=== PATIENT | male | born 1985 | race Caucasian/White ===

== ENCOUNTER 2024-12-05 10:11 | Inpatient (IN) | payer MEDICAID ==
[2024-12-05] VITALS (7 sets, daily range): BP systolic 125–142; BP diastolic 71–85; PULSE 70–88; RESP 18; TEMP 97.7–98.1; O2SAT 95–98
[~2024-12-05] VITALS: Ht 185.4 cm; Wt 80.3 kg
[2024-12-05] MEDS ORDERED: MAG HYDROX/ALUMINUM HYD/SIMETH ES 30 ML SUSPENSION UDCUP PO PRN (13:30)
[2024-12-05] MEDS ORDERED: LOPERAMIDE HCL 2 MG CAPSULE PO PRN (13:30)
[2024-12-05] MEDS: ZOLPIDEM TARTRATE 10 MG TABLET PO PRN (22:44)
[2024-12-06] MEDS ORDERED: PNEUMOCOCCAL VACCINE POLYVALENT 0.5 ML SYRINGE [PPSV23] IM. ONE (01:00)
[2024-12-06 03:11] VITALS: BP 140/69; PULSE 60; RESP 18; TEMP 97.5; O2SAT 96
[2024-12-06 06:00] VITALS: BP 126/62
[2024-12-06] MEDS: MetFORMIN HCL 500 MG ER TABLET PO SCH (06:03)
[2024-12-06] MEDS ORDERED: NICOTINE 14 MG/24 HOUR PATCH TD PRN (06:30)
[2024-12-06] MEDS ORDERED: MAG HYDROX/ALUMINUM HYD/SIMETH ES 30 ML SUSPENSION UDCUP PO PRN (06:30)
[2024-12-06] MEDS ORDERED: ACETAMINOPHEN 325 MG TABLET PO PRN (06:30)
[2024-12-06] MEDS ORDERED: ALBUTEROL SULFATE HFA 90 MCG/PUFF 8 GM INHALER IH PRN (06:30)
[2024-12-06] MEDS ORDERED: DOCUSATE SODIUM 100 MG CAPSULE PO PRN (06:30)
[2024-12-06] MEDS ORDERED: MAGNESIUM HYDROXIDE SUSPENSION 30 ML UDCUP PO PRN (06:30)
[2024-12-06] MEDS ORDERED: PETROLATUM,WHITE 28 GM JELLY TP PRN (06:30)
[2024-12-06] MEDS ORDERED: GuaiFENesin/D-METHORPHAN [SUGAR-FREE] 200-20MG/10 ML SYRUP UDCUP PO PRN (06:30)
[2024-12-06] MEDS: GABAPENTIN 400 MG CAPSULE PO SCH (08:15)
[2024-12-06 08:36] VITALS: BP 117/67; PULSE 74; RESP 16; TEMP 97.2; O2SAT 96
[2024-12-06 08:40] LABS: PLATELET COUNT (AUTO) 314 K/uL (150-450); RED BLOOD CELL COUNT(AUTO) 5.21 MIL/uL (4.50-5.90); RED CELL DISTRIBUTION WIDTH 14.5 % (11.5-14.5); WHITE BLOOD COUNT (AUTO) 9.2 K/uL (4.5-11.0)
[2024-12-06 09:24] LABS: ASPARTATE AMINOTRANSFERASE 74 U/L (15-37); CALCIUM, TOTAL 8.2 mg/dL (8.8-10.5); CHOL/HDL RATIO 3.4 (4.2-7.3); CREATININE 0.91 mg/dL (0.60-1.30); GLOMERULAR FILTR. RATE CALC > 60 mL/min (>60); GLUCOSE,RANDOM 114 mg/dL (70-110); LDL CHOL (CALC.) 47 mg/dL (0-130); SODIUM SERUM 138 mmol/L (136-145); TOTAL PROTEIN, SERUM 6.3 g/dL (6.4-8.2); UREA NITROGEN, BLOOD 11 mg/dL (7-18)
[2024-12-06] MEDS ORDERED: RISP2TAB45 PO (10:02)
[2024-12-06] MEDS ORDERED: OLAN20TA82 PO (10:02)
[2024-12-06 16:23] VITALS: BP 142/87; PULSE 81; RESP 18; TEMP 99; O2SAT 99
[2024-12-06 20:32] VITALS: BP 142/87; PULSE 81; RESP 17; TEMP 98; O2SAT 98
[2024-12-07 01:00] VITALS: BP 132/72; PULSE 68; RESP 18; TEMP 97.6; O2SAT 97
[2024-12-07 08:14] VITALS: BP 127/96; PULSE 74; RESP 18; TEMP 97.2; O2SAT 96
[2024-12-07 08:53] LABS: CHOL/HDL RATIO 4.2 (4.2-7.3); LDL CHOL (CALC.) 59.0 mg/dL (0-130)
[2024-12-07 15:27] VITALS: BP 130/67; PULSE 82; RESP 16; TEMP 97.4; O2SAT 96
[2024-12-07 20:18] VITALS: BP 128/83; PULSE 98; RESP 19; TEMP 98.1; O2SAT 99
[2024-12-08] VITALS (7 sets, daily range): BP systolic 122–140; BP diastolic 72–90; PULSE 60–89; RESP 16–20; TEMP 97.6–98.1; O2SAT 96–98
[2024-12-08] MEDS: NICOTINE POLACRILEX 2 MG LOZENGE PO PRN (11:23)
[2024-12-08] MEDS: IBUPROFEN 600 MG TABLET PO PRN (20:14)
[2024-12-08] MEDS: LOPERAMIDE HCL 2 MG CAPSULE PO PRN (20:16)
[2024-12-09] MEDS: LEVOTHYROXINE SODIUM 25 MCG TABLET PO SCH (06:47)
[2024-12-09] MEDS: ONDANSETRON 4 MG TABLET PO PRN (09:00)
[2024-12-09] MEDS: IBUPROFEN 400 MG TABLET PO PRN (09:08)
[2024-12-09 09:12] VITALS: BP 131/75; PULSE 72; RESP 18; TEMP 97.9; O2SAT 100
[2024-12-09] MEDS ORDERED: LOPERAMIDE HCL 2 MG CAPSULE PO PRN (09:30)
[2024-12-09] MEDS: METHADONE HCL 10 MG TABLET PO SCH (10:14)
[2024-12-09 18:43] VITALS: BP 135/89; PULSE 69; RESP 18; TEMP 98.3; O2SAT 97
[2024-12-09 20:09] VITALS: BP 151/90; PULSE 89; RESP 19; TEMP 97.8; O2SAT 97
[2024-12-09 23:52] VITALS: BP 151/90; PULSE 110; RESP 18; TEMP 97.8; O2SAT 97
[2024-12-10 08:18] VITALS: BP 124/69; PULSE 82; RESP 18; TEMP 98.4; O2SAT 98
[2024-12-10] MEDS ORDERED: METHADONE HCL 10 MG TABLET PO SCH (09:00)
[2024-12-10 09:27] LABS: ALCOHOL, URINE DRUG SCREEN NEGATIVE (NEGATIVE); AMPHET/METH SCREEN,URINE NEGATIVE (NEGATIVE); BARBITURATE SCREEN, URINE NEGATIVE (NEGATIVE); CANNABINOID SCREEN,URINE NEGATIVE (NEGATIVE); COCAINE SCREEN,URINE NEGATIVE (NEGATIVE); METHADONE SCREEN, URINE POSITIVE (NEGATIVE)
[2024-12-10 09:28] LABS: APPEARANCE,URINE CLEAR (CLEAR); GLUCOSE, URINE (UA) NEGATIVE (NEGATIVE); LEUKOCYTE ESTERASE ,URINE NEGATIVE (NEGATIVE); NITRATE,URINE NEGATIVE (NEGATIVE); OCCULT BLOOD,URINE NEGATIVE (NEGATIVE); PH,URINE DRUG SCREEN 6.5 (5.0-8.0); SPECIFIC GRAVITIY, URINE 1.011 (1.003-1.030)
[2024-12-10 13:21] VITALS: BP 124/69; PULSE 82; RESP 18; TEMP 98.4; O2SAT 98
[2024-12-10 16:34] VITALS: BP 141/81; PULSE 72; RESP 18
[2024-12-10] MEDS ORDERED: RISP-32 PO (19:21)
[2024-12-10] MEDS ORDERED: OLAN10TA74 PO (19:21)
[2024-12-10] MEDS ORDERED: METF-81 PO (19:21)
[2024-12-10] MEDS ORDERED: LEVO25TA9 PO (19:21)
[2024-12-10 20:09] VITALS: BP 143/76; PULSE 83; RESP 18; TEMP 98; O2SAT 98
[2024-12-10 21:01] VITALS: BP 143/75; PULSE 67; RESP 18; TEMP 97.9; O2SAT 97
[2024-12-11 08:24] VITALS: BP 139/69; PULSE 93; RESP 17; TEMP 97.9; O2SAT 97
== END 2024-12-11 13:05 | disposition home or self-care (01) | DRG 750 ==
LOC: B2S 13:26
PROVIDERS: ADMIT Psychiatry & Neurology Psychiatry; ATTEND Psychiatry & Neurology Psychiatry
PROC: GZHZZZZ Group Psychotherapy (ICD-10-PCS; principal; 2024-12-06)
DX: F25.1 Schizoaffective disorder, depressive type (principal); F11.20 Opioid dependence, uncomplicated; F15.10 Other stimulant abuse, uncomplicated; F41.9 Anxiety disorder, unspecified; F19.10 Other psychoactive substance abuse, uncomplicated; G47.00 Insomnia, unspecified; R73.9 Hyperglycemia, unspecified; Z59.00 Homelessness unspecified; Z91.51 Personal history of suicidal behavior; Z79.899 Other long term (current) drug therapy; Z88.5 Allergy status to narcotic agent
CPT/HCPCS: 80053; 80061; 80307; 81003; 83036; 84439; 84443; 85025; Q0162

== ENCOUNTER 2024-12-20 22:33 | Inpatient (IN) | payer MEDICAID ==
[~2024-12-20] VITALS: Ht 185.4 cm; Wt 121.6 kg
[~2024-12-20 22:33] MED LIST: LEVO25TA9 PO; METF-81 PO; OLAN10TA74 PO; RISP-32 PO
[2024-12-21 01:56] LABS: GLUCOMETER DEV NAME(LOC) BV3S.2; GLUCOSE,POINT OF CARE 140 MG/DL (70-110)
[2024-12-21] MEDS ORDERED: MAGNESIUM HYDROXIDE SUSPENSION 30 ML UDCUP PO PRN (02:15)
[2024-12-21] MEDS ORDERED: MAG HYDROX/ALUMINUM HYD/SIMETH ES 30 ML SUSPENSION UDCUP PO PRN (02:15)
[2024-12-21] MEDS ORDERED: ALBUTEROL SULFATE HFA 90 MCG/PUFF 8 GM INHALER IH PRN (02:15)
[2024-12-21] MEDS ORDERED: PETROLATUM,WHITE 28 GM JELLY TP PRN (02:15)
[2024-12-21] MEDS ORDERED: GuaiFENesin/D-METHORPHAN [SUGAR-FREE] 200-20MG/10 ML SYRUP UDCUP PO PRN (02:15)
[2024-12-21] MEDS ORDERED: NICOTINE 14 MG/24 HOUR PATCH TD PRN (02:15)
[2024-12-21] MEDS ORDERED: LOPERAMIDE HCL 2 MG CAPSULE PO PRN (02:15)
[2024-12-21 02:20] VITALS: BP 149/101; PULSE 70; RESP 19; TEMP 97; O2SAT 97
[2024-12-21 02:28] VITALS: BP 149/101; PULSE 70; RESP 19; TEMP 97; O2SAT 97
[2024-12-21] MEDS: DOCUSATE SODIUM 100 MG CAPSULE PO PRN (04:21)
[2024-12-21] MEDS: IBUPROFEN 400 MG TABLET PO PRN (04:22)
[2024-12-21 04:28] VITALS: BP 179/94; PULSE 74; RESP 20; TEMP 97.7; O2SAT 98
[2024-12-21 06:27] VITALS: BP 126/77; PULSE 74; RESP 18; TEMP 97.8; O2SAT 98
[2024-12-21 08:13] VITALS: BP 143/103; PULSE 89; RESP 17; TEMP 97.7; O2SAT 97
[2024-12-21 08:27] LABS: PLATELET COUNT (AUTO) 345 K/uL (150-450); RED BLOOD CELL COUNT(AUTO) 5.32 MIL/uL (4.50-5.90); RED CELL DISTRIBUTION WIDTH 14.0 % (11.5-14.5); WHITE BLOOD COUNT (AUTO) 7.7 K/uL (4.5-11.0)
[2024-12-21 08:58] LABS: ASPARTATE AMINOTRANSFERASE 31 U/L (15-37); CALCIUM, TOTAL 8.3 mg/dL (8.8-10.5); CHOL/HDL RATIO 4.0 (4.2-7.3); CREATININE 1.14 mg/dL (0.60-1.30); GLOMERULAR FILTR. RATE CALC > 60 mL/min (>60); GLUCOSE,RANDOM 95 mg/dL (70-110); LDL CHOL (CALC.) 62 mg/dL (0-130); SODIUM SERUM 138 mmol/L (136-145); TOTAL PROTEIN, SERUM 6.4 g/dL (6.4-8.2); UREA NITROGEN, BLOOD 11 mg/dL (7-18)
[2024-12-21] MEDS: NICOTINE 14 MG/24 HOUR PATCH TD SCH (08:59)
[2024-12-21] MEDS: METHADONE HCL 10 MG TABLET PO SCH (12:04)
[2024-12-21 20:33] VITALS: BP 105/63; PULSE 77; RESP 17; TEMP 97.1; O2SAT 96
[2024-12-21] MEDS: ZOLPIDEM TARTRATE 10 MG TABLET PO PRN (20:34)
[2024-12-21] MEDS: ACETAMINOPHEN 325 MG TABLET PO PRN (20:34)
[2024-12-21 20:55] LABS: GLUCOMETER DEV NAME(LOC) BV3S.2; GLUCOSE,POINT OF CARE 118 MG/DL (70-110)
[2024-12-22 08:13] VITALS: BP 138/89; PULSE 89; TEMP 97.8; O2SAT 99
[2024-12-22 08:41] LABS: APPEARANCE,URINE HAZY (CLEAR); GLUCOSE, URINE (UA) NEGATIVE (NEGATIVE); LEUKOCYTE ESTERASE ,URINE NEGATIVE (NEGATIVE); NITRATE,URINE NEGATIVE (NEGATIVE); OCCULT BLOOD,URINE NEGATIVE (NEGATIVE); PH,URINE DRUG SCREEN 7.0 (5.0-8.0); SPECIFIC GRAVITIY, URINE 1.013 (1.003-1.030)
[2024-12-22 08:50] LABS: ALCOHOL, URINE DRUG SCREEN NEGATIVE (NEGATIVE); AMPHET/METH SCREEN,URINE NEGATIVE (NEGATIVE); BARBITURATE SCREEN, URINE NEGATIVE (NEGATIVE); CANNABINOID SCREEN,URINE NEGATIVE (NEGATIVE); COCAINE SCREEN,URINE NEGATIVE (NEGATIVE); METHADONE SCREEN, URINE POSITIVE (NEGATIVE)
[2024-12-22 18:02] VITALS: RESP 18
[2024-12-22 18:20] LABS: GLUCOMETER DEV NAME(LOC) BV3S.2; GLUCOSE,POINT OF CARE 135 MG/DL (70-110)
[2024-12-22 19:02] VITALS: RESP 18
[2024-12-22 19:50] VITALS: RESP 17
[2024-12-22 20:27] VITALS: BP 143/97; PULSE 83; RESP 18; TEMP 98.1; O2SAT 97
[2024-12-22 20:50] VITALS: RESP 18
[2024-12-23 06:46] LABS: GLUCOMETER DEV NAME(LOC) BV3S.2; GLUCOSE,POINT OF CARE 98 MG/DL (70-110)
[2024-12-23 08:42] VITALS: BP 135/72; PULSE 80; RESP 17; TEMP 97.5
[2024-12-23] MEDS: ONDANSETRON 4 MG TABLET PO PRN (14:28)
[2024-12-23 17:15] LABS: GLUCOMETER DEV NAME(LOC) BV3S.2; GLUCOSE,POINT OF CARE 140 MG/DL (70-110)
[2024-12-23 20:15] VITALS: BP 136/81; PULSE 99; RESP 18; TEMP 97.5; O2SAT 96
[2024-12-24 06:46] LABS: GLUCOMETER DEV NAME(LOC) BV3S.2; GLUCOSE,POINT OF CARE 110 MG/DL (70-110)
[2024-12-24 08:16] VITALS: BP 137/85; PULSE 70; RESP 17; TEMP 97.4; O2SAT 98
[2024-12-24 18:10] LABS: GLUCOMETER DEV NAME(LOC) BV3S.2; GLUCOSE,POINT OF CARE 142 MG/DL (70-110)
[2024-12-24 20:23] VITALS: BP 131/88; PULSE 83; RESP 17; TEMP 97.4; O2SAT 97
[2024-12-25 06:51] LABS: GLUCOMETER DEV NAME(LOC) BV3S.2; GLUCOSE,POINT OF CARE 127 MG/DL (70-110)
[2024-12-25] MEDS ORDERED: RISP3TAB77 PO (08:52)
[2024-12-25 09:12] VITALS: BP 150/64; PULSE 71; RESP 18; TEMP 97.6; O2SAT 94
== END 2024-12-25 16:20 | disposition home or self-care (01) | DRG 761 ==
LOC: B3A 12-21 00:13
PROVIDERS: ADMIT Psychiatry & Neurology Child & Adolescent Psychiatry; ATTEND Psychiatry & Neurology Psychiatry
PROC: GZ56ZZZ Individual Psychotherapy, Supportive (ICD-10-PCS; 2024-12-21)
PROC: GZ58ZZZ Individual Psychotherapy, Cognitive-Behavioral (ICD-10-PCS; 2024-12-21)
PROC: GZ52ZZZ Individual Psychotherapy, Cognitive (ICD-10-PCS; 2024-12-22)
PROC: GZHZZZZ Group Psychotherapy (ICD-10-PCS; principal; 2024-12-23)
DX: F25.1 Schizoaffective disorder, depressive type (principal); R45.851 Suicidal ideations; E11.9 Type 2 diabetes mellitus without complications; E03.9 Hypothyroidism, unspecified; F11.20 Opioid dependence, uncomplicated; F15.10 Other stimulant abuse, uncomplicated; Z88.5 Allergy status to narcotic agent; Z79.899 Other long term (current) drug therapy
CPT/HCPCS: 80053; 80061; 80307; 81003; 82962; 83036; 84439; 84443; 85025; 87081; Q0162

== ENCOUNTER 2025-01-04 19:34 | Inpatient (IN) | payer MEDICAID ==
[~2025-01-04 19:34] MED LIST changes: -LEVO25TA9 PO; -METF-81 PO; -RISP-32 PO; +RISP3TAB77 PO
[2025-01-04] MEDS: METHADONE HCL 10 MG TABLET PO ONE (21:13)
[2025-01-04 21:38] VITALS: BP 142/81; PULSE 92; RESP 18; TEMP 98.4; O2SAT 98
[2025-01-04] MEDS ORDERED: MAG HYDROX/ALUMINUM HYD/SIMETH ES 30 ML SUSPENSION UDCUP PO PRN (23:00)
[2025-01-04] MEDS ORDERED: ALBUTEROL SULFATE HFA 90 MCG/PUFF 8 GM INHALER IH PRN (23:00)
[2025-01-04] MEDS ORDERED: PETROLATUM,WHITE 28 GM JELLY TP PRN (23:00)
[2025-01-04] MEDS ORDERED: ACETAMINOPHEN 325 MG TABLET PO PRN (23:00)
[2025-01-04] MEDS ORDERED: MAGNESIUM HYDROXIDE SUSPENSION 30 ML UDCUP PO PRN (23:00)
[2025-01-04] MEDS ORDERED: LOPERAMIDE HCL 2 MG CAPSULE PO PRN (23:00)
[2025-01-04] MEDS ORDERED: GuaiFENesin/D-METHORPHAN [SUGAR-FREE] 200-20MG/10 ML SYRUP UDCUP PO PRN (23:00)
[2025-01-04] MEDS ORDERED: IBUPROFEN 400 MG TABLET PO PRN (23:00)
[2025-01-04] MEDS ORDERED: ONDANSETRON 4 MG TABLET PO PRN (23:00)
[2025-01-04] MEDS: ZOLPIDEM TARTRATE 10 MG TABLET PO PRN (23:16)
[2025-01-05 08:04] LABS: PLATELET COUNT (AUTO) 331 K/uL (150-450); RED BLOOD CELL COUNT(AUTO) 5.75 MIL/uL (4.50-5.90); RED CELL DISTRIBUTION WIDTH 13.7 % (11.5-14.5); WHITE BLOOD COUNT (AUTO) 12.7 K/uL (4.5-11.0)
[2025-01-05 08:30] LABS: ASPARTATE AMINOTRANSFERASE 51 U/L (15-37); CALCIUM, TOTAL 9.4 mg/dL (8.8-10.5); CHOL/HDL RATIO 3.6 (4.2-7.3); CREATININE 0.97 mg/dL (0.60-1.30); GLOMERULAR FILTR. RATE CALC > 60 mL/min (>60); GLUCOSE,RANDOM 93 mg/dL (70-110); LDL CHOL (CALC.) 84 mg/dL (0-130); SODIUM SERUM 139 mmol/L (136-145); TOTAL PROTEIN, SERUM 7.9 g/dL (6.4-8.2); UREA NITROGEN, BLOOD 18 mg/dL (7-18)
[2025-01-05] MEDS: METHADONE HCL 10 MG TABLET PO SCH (08:55)
[2025-01-05 09:09] VITALS: BP 139/83; PULSE 94; RESP 17; TEMP 98; O2SAT 98
[2025-01-05] MEDS: NICOTINE 14 MG/24 HOUR PATCH TD PRN (16:22)
[2025-01-05 20:19] VITALS: BP 136/86; PULSE 85; RESP 18; TEMP 98.1; O2SAT 96
[2025-01-06 08:37] VITALS: BP 116/69; PULSE 67; RESP 17; TEMP 98.3; O2SAT 97
[2025-01-06 20:19] VITALS: BP 135/98; PULSE 80; RESP 18; TEMP 98.2; O2SAT 98
[2025-01-07 08:54] VITALS: BP 119/81; PULSE 80; RESP 18; TEMP 97.2; O2SAT 98
[2025-01-07] MEDS: DOCUSATE SODIUM 100 MG CAPSULE PO PRN (11:52)
[2025-01-07 20:36] VITALS: BP 140/92; PULSE 85; RESP 18; TEMP 98.1; O2SAT 98
[2025-01-08 08:57] VITALS: BP 129/89; PULSE 83; RESP 17; TEMP 97.1; O2SAT 98
[2025-01-08 10:12] LABS: PLATELET COUNT (AUTO) 342 K/uL (150-450); RED BLOOD CELL COUNT(AUTO) 5.78 MIL/uL (4.50-5.90); RED CELL DISTRIBUTION WIDTH 13.5 % (11.5-14.5); WHITE BLOOD COUNT (AUTO) 11.2 K/uL (4.5-11.0)
[2025-01-08] MEDS ORDERED: METF-1211 PO (11:56)
[2025-01-08] MEDS ORDERED: BUSP5TAB20 PO (11:56)
[2025-01-09 06:26] LABS: GLUCOMETER DEV NAME(LOC) BV2S.; GLUCOSE,POINT OF CARE 98 MG/DL (70-110)
== END 2025-01-08 14:53 | disposition home or self-care (01) | DRG 761 ==
LOC: B3A 19:49
PROVIDERS: ADMIT Psychiatry & Neurology Psychiatry; ATTEND Psychiatry & Neurology Psychiatry
PROC: GZHZZZZ Group Psychotherapy (ICD-10-PCS; principal; 2025-01-05)
PROC: GZ52ZZZ Individual Psychotherapy, Cognitive (ICD-10-PCS; 2025-01-07)
DX: F25.1 Schizoaffective disorder, depressive type (principal); R45.851 Suicidal ideations; Z59.00 Homelessness unspecified; D72.829 Elevated white blood cell count, unspecified; E03.9 Hypothyroidism, unspecified; E11.9 Type 2 diabetes mellitus without complications; F11.20 Opioid dependence, uncomplicated; F15.20 Other stimulant dependence, uncomplicated; Z88.5 Allergy status to narcotic agent; Z79.899 Other long term (current) drug therapy; Z91.51 Personal history of suicidal behavior
CPT/HCPCS: 80053; 80061; 82962; 83036; 84443; 85025

== ENCOUNTER 2025-01-22 12:02 | Emergency (ER) | payer MEDICAID, OTHER ==
[~2025-01-22] VITALS: Ht 185.4 cm; Wt 121.4 kg
[~2025-01-22 12:02] MED LIST changes: +BUSP5TAB20 PO; +METF-1211 PO
[2025-01-22 12:05] VITALS: BP 130/90; PULSE 86; RESP 22; TEMP 97.9; O2SAT 97
[2025-01-22] MEDS: LORazepam 2 MG/ML VIAL IM ONE (12:57)
[2025-01-22] MEDS ORDERED: HYDR50CA7 PO (14:32)
[2025-01-22] MEDS ORDERED: OLAN10TA74 PO (14:53)
== END 2025-01-22 14:44 | disposition home or self-care (01) ==
LOC: EMS 12:05
DX: F41.9 Anxiety disorder, unspecified (principal); G89.29 Other chronic pain; F25.1 Schizoaffective disorder, depressive type; F15.90 Other stimulant use, unspecified, uncomplicated; Z87.891 Personal history of nicotine dependence; Z79.899 Other long term (current) drug therapy; Z88.5 Allergy status to narcotic agent
CPT/HCPCS: 99283; 96372; J2060

== ENCOUNTER 2025-01-28 15:17 | Emergency (ER) | payer OTHER ==
[~2025-01-28] VITALS: Ht 185.4 cm; Wt 120.5 kg
[~2025-01-28 15:17] MED LIST changes: +HYDR50CA7 PO
[2025-01-28 15:22] VITALS: BP 131/86; PULSE 79; RESP 18; TEMP 97.7; O2SAT 99
[2025-01-28] MEDS ORDERED: EZET10TA57 PO (16:19)
[2025-01-28] MEDS ORDERED: TEST100V11 IM (16:19)
[2025-01-28] MEDS ORDERED: SEMA2.4P SQ (16:19)
[2025-01-28] MEDS: LORazepam 2 MG/ML VIAL IM ONE (16:32)
[2025-01-28] MEDS ORDERED: LORA1TAB25 PO (17:11)
== END 2025-01-28 18:04 | disposition home or self-care (01) ==
LOC: EMS 15:17
DX: F41.9 Anxiety disorder, unspecified (principal); F25.1 Schizoaffective disorder, depressive type; G89.29 Other chronic pain; F15.90 Other stimulant use, unspecified, uncomplicated; Z87.891 Personal history of nicotine dependence; Z98.890 Other specified postprocedural states; Z88.5 Allergy status to narcotic agent; Z79.899 Other long term (current) drug therapy
CPT/HCPCS: 99283; 96372; J2060

== ENCOUNTER 2025-02-04 12:38 | Emergency (ER) | payer OTHER ==
[~2025-02-04] VITALS: Ht 185.4 cm; Wt 118.2 kg
[~2025-02-04 12:38] MED LIST changes: +EZET10TA57 PO; +LORA1TAB25 PO; +SEMA2.4P SQ; +TEST100V11 IM
[2025-02-04] MEDS: IBUPROFEN 600 MG TABLET PO ONE (15:47)
[2025-02-04] MEDS: ACETAMINOPHEN 500 MG TABLET PO ONE (15:48)
[2025-02-04] MEDS ORDERED: IBUP-1492 PO (17:08)
[2025-02-04] MEDS ORDERED: ACET-2247 PO (17:08)
[2025-02-04 17:11] VITALS: BP 132/75; PULSE 92; RESP 18; TEMP 98.2; O2SAT 96
== END 2025-02-04 18:56 | disposition home or self-care (01) ==
LOC: EMS 12:38
DX: S93.602A Unspecified sprain of left foot, initial encounter (principal); F41.9 Anxiety disorder, unspecified; G89.29 Other chronic pain; R73.03 Prediabetes; Z79.899 Other long term (current) drug therapy; Z88.5 Allergy status to narcotic agent; W19.XXXA Unspecified fall, initial encounter; Y93.01 Activity, walking, marching and hiking; Y92.89 Other specified places as the place of occurrence of the external cause; Y99.8 Other external cause status
CPT/HCPCS: 99283